=== PATIENT | female | born 1985 | race African-American/Black ===

== ENCOUNTER → 2022-02-28 | Outpatient (CLI) | payer OTHER ==
[2016-08-03 10:05] VITALS: BP 115/79
[~2022-02-28] MED LIST: MULT-114 PO; OXYC1TAB15 PO
== END ==
LOC: LAB 14:16
PROVIDERS: ATTEND Obstetrics & Gynecology
DX: Z01.812 Encounter for preprocedural laboratory examination (principal); Z20.822 Contact with and (suspected) exposure to COVID-19
CPT/HCPCS: U0003

== ENCOUNTER 2022-03-02 09:04 | Day surgery (SDC) | payer OTHER ==
[~2022-03-02] VITALS: Ht 162.6 cm; Wt 70.0 kg
[~2022-03-02 09:04] MED LIST changes: +DEXAMETHASONE SOD PHOS 4 MG/ML VIAL ONE; +HYDROmorphone 2 MG/ML INJ. IVP PRN; +IV RINGERS,LACTATED 1000ML 1,000 ML IV SCH; +LIDOCAINE 1% PF 5 ML VIAL. ONE; +MORPHINE SULFATE 2 MG/ML INJ. IVP PRN; +ONDANSETRON PF 4 MG/2 ML VIAL. ONE; +PROCHLORPERAZINE 10 MG/2 ML VIAL. IVP PRN; +PROPOFOL 10 MG/ML (20ML) VIAL. IV ONE; +ceFAZolin SODIUM IV Push 1 GM VIAL. IVP PRN; +fentaNYL PF VIAL 100 MCG/2 ML VIAL IVP PRN
[2022-03-02 09:31] VITALS: BP 137/95
[2022-03-02] MEDS ORDERED: fentaNYL PF VIAL 100 MCG/2 ML VIAL ONE (10:17)
[2022-03-02] MEDS ORDERED: LIDOCAINE 1%/EPI 1:100,000 20 ML VIAL. ONE (11:14)
[2022-03-02] MEDS ORDERED: FERRIC SUBSULFATE 8 ML SOL.W.APPL TP ONE (11:21)
--- NOTE | 2022-03-02 11:32 | PDOC4 ---
BRIEF OPERATIVE NOTE Date: Mar 02, 2022 Pre-Op Diagnosis Cervical Dysplasia Post-Op Diagnosis Same Procedure Performed Cold Knife Cone Biopsy Surgeon Dr. Lund Anesthesia Type: General Blood Loss 5 ml Specimens Obtained cervical cone biopsy of anterior and posterior lip of cervix Findings cervical dysplasia Complications none Operative Note see dictation AMANDA LUND Jr., MD Mar 02, 2022 11:32
[2022-03-02] MEDS ORDERED: OXYC1TAB15 PO (11:33)
--- NOTE | 2022-03-02 11:35 | DISCH ---
DISCHARGE INSTRUCTIONS Condition on Discharge Condition on Discharge: Stable Activity After Discharge Activity Instructions for Disc: Activity as tolerated Lifting Instructions after Dis: No heavy lifting Driving Instructions after Dis: Do not drive today Diet after Discharge Diet after Discharge: Regular Contacting the DRRui after DC Call your doctor for: Concerns you may have Follow-Up Follow up with: Dr. Lund in 2 weeks AMANDA LUND Jr., MD Mar 02, 2022 11:35
[2022-03-02 12:30] VITALS: BP 138/98
--- NOTE | 2022-03-02 12:34 | OP ---
DATE OF SURGERY: 03/02/2022 PREOPERATIVE DIAGNOSIS: Cervical dysplasia. POSTOPERATIVE DIAGNOSIS: Cervical dysplasia. PROCEDURE: Cold knife cone biopsy. SURGEON: Carlito Lund MD ANESTHESIA: GETA. ESTIMATED BLOOD LOSS: 5 mL COMPLICATIONS: None. FINDINGS: Cervical dysplasia. SUMMARY: A 37-year-old female with FINA 1 on colposcopic biopsy, requiring cervical cone biopsy. She was counseled on risks, benefits and expectations and voiced clear understanding to proceed. DESCRIPTION OF PROCEDURE: The patient was taken to surgery suite and placed in dorsal lithotomy position, was prepped with Betadine solution and draped in sterile fashion. After adequate anesthesia, weighted speculum and right angle were placed vaginally. Anterior lip of the cervix grasped with single tooth tenaculum. Cervix was injected with 1% lidocaine with epinephrine in circumferential manner, 2-0 Vicryl suture was placed at 3 o'clock and 9 o'clock position to help stabilize the cervix. Cone biopsy was performed with the 45-degree angle scapula removing a portion of the anterior and posterior lip of the cervix. The remaining cervix was cauterized with Bovie cautery and Monsel solution was also applied for hemostasis. The right angle and weighted speculum were removed. The patient tolerated the procedure well and was taken to recovery room in stable condition. Sponge and needle count correct x 3. ANDRÉS DR: Leonor TID: [id number]
--- NOTE | 2022-03-06 15:11 | PATHOLOGY ---
[facility] Accession Number: [id number] . 01 Material submitted: . cervix - CERVICAL CONE BIOPSY . 01 Clinical history: . MODERATE DYSPLASIA OF CERVIX STITCH AT 12 O'CLOCK . 02 Diagnosis: Uterine cervix, cervical cone biopsy: - Mild dysplasia (FINA I), focal. - Exocervical, endocervical, and deep margins negative for dysplasia. - Active chronic cervicitis with focal immature and atypical squamous metaplasia. - Endocervical microglandular hyperplasia, focal. LBQ 03/06/2022 1054 Local . 02 Comment: There is no high grade FINA or evidence of malignancy. (JPM/db; 03/06/2022) . 02 Electronically signed: . Bennie Callejas MD, Pathologist NPI- [id number] . 01 Gross description: . The specimen is received in formalin, labeled "Marisa Hartman, cervical cone biopsy stitch at 12:00". Received is an intact oriented LEEP specimen measuring 2.5 x 1.6 x 1.4 cm in greatest dimensions with a suture designating 12:00. The 1.5 cm, slitlike and slightly gaping cervical os is surrounded by pale cortez, wrinkled and irregular in contour ectocervical mucosa. The ectocervical margin is inked black and the remaining endocervical margin is inked blue. The specimen is radially sectioned and entirely submitted as follows: . A1- 12:00-3:00 A2- 3:00-6:00 A3- 6:00-9:00 A4- 9:00-12:00 ([facility]; 03/03/2022) NRI/NRI 03/03/2022 1013 Local . 02 Pathologist provided ICD-10: N87.0, N72 . 02 [facility] . [id number] Specimen Comment: A courtesy copy of this report has been sent to [phone] Specimen Comment: Report sent to Performed at: 01 [facility] [address] [id number] MD Nico Horvath MD Phone: [phone] Performed at: 02 [facility] [address] [place], [place] [id number] MD Bennie Callejas MD Phone: [phone]
== END 2022-03-02 13:02 | disposition home or self-care (01) ==
LOC: SURG 09:04
PROVIDERS: ATTEND Obstetrics & Gynecology
DX: N87.0 Mild cervical dysplasia (principal); N72 Inflammatory disease of cervix uteri; Z79.899 Other long term (current) drug therapy; Z98.890 Other specified postprocedural states
CPT/HCPCS: 57520; 81025; A4930; J0690; J1100; J2405; J2704; J3010; J3490; 88307